=== PATIENT | male | born 1975 | race Caucasian/White ===

== ENCOUNTER → 2018-12-19 | Outpatient (CLI) | payer BC, OTHER ==
[~2018-12-19] MED LIST: ALBU90OI INH; CLIN300 PO; CYCL10 PO; HYDACE5 PO; NAPR500 PO
[2018-12-19 17:25] LABS: WBC Count, Synovial Fluid 7997 /mm3 (0-180)
[2018-12-19 17:45] LABS: RBC Count, Synovial Fluid 490 /mm3 (0-0)
[2018-12-19 17:46] LABS: Appearance, Synovial Fluid Cloudy (Clear); Color, Synovial Fluid Yellow (None-P Yel)
[2018-12-19 18:09] LABS: Glucose, Body Fluid 8 mg/dL
[2018-12-19 19:06] LABS: Body Fluid Crystals NEG (NEGATIVE)
[2018-12-19 19:11] LABS: Lymphs, Synovial Fluid 3 % (0-15); Monocytes/Macrophages, Synovia 15 % (0-65); Neutrophils, Synovial Fluid 82 % (0-24)
== END | disposition home or self-care (01) ==
LOC: LAB 17:00 → LAB SHORT 17:00
PROVIDERS: Physician Assistant Surgical
DX: R22.0 Localized swelling, mass and lump, head (principal)
CPT/HCPCS: 82945; 89051; 89060

== ENCOUNTER 2020-07-23 07:39 | Inpatient (IN) | payer BC ==
[~2020-07-23] VITALS: Ht 182.9 cm; Wt 131.4 kg
[2020-07-23] MEDS ORDERED: OMEP20ER PO (07:59)
[2020-07-23 08:37] LABS: BASOPHILS ABSOLUTE AUTO 0.05 K/mm3 (0.00-0.23); BASOPHILS PERCENT AUTO 0 % (0-2); EOSINOPHILS PERCENT AUTO 0 % (0-6); Hematocrit 52.6 % (37.0-53.0); Hemoglobin 18.1 g/dL (13.5-17.5); IMMATURE GRAN ABSOLUTE AUTO 0.13 K/mm3 (0.00-0.10); IMMATURE GRAN PERCENT AUTO 1 % (0-1); LYMPHOCYTES ABSOLUTE AUTO 1.94 K/mm3 (0.84-5.20); LYMPHOCYTES PERCENT AUTO 9 % (21-46); MONOCYTES ABSOLUTE AUTO 0.82 K/mm3 (0.16-1.47); MONOCYTES PERCENT AUTO 4 % (4-13); Mean Corpuscular HGB 30.2 pg (26.0-34.0); Mean Corpuscular HGB Conc 34.4 g/dL (31.5-36.5); Mean Corpuscular Volume 88 fL (80-100); Mean Platelet Volume 12.3 fL (9.1-12.4); NEUTROPHILS ABSOLUTE AUTO 19.76 K/mm3 (1.96-9.15); NEUTROPHILS PERCENT AUTO 87 % (41-73); Platelet Count 407 K/mm3 (150-400); RDW Coefficient Variation 12.7 % (11.7-14.2); RDW Standard Deviation 40.5 fL (35.1-46.3)
[2020-07-23 09:02] LABS: Albumin, Blood 4.6 g/dL (3.4-5.0); Bilirubin, Total 1.1 mg/dL (0.1-1.0); Calcium, Blood 10.2 mg/dL (8.5-10.1); Creatinine, Blood 1.6 mg/dL (0.60-1.20); Globulin, Blood 4.4 g/dL (2.2-4.0); Potassium, Blood 5.2 mmol/L (3.5-5.5)
[2020-07-23 09:23] LABS: Source, Urine Voided
[2020-07-23 09:34] LABS: Bilirubin, Urine Neg (Neg); Blood, Urine 2+ (Neg); Glucose Qualitative, Urine 4+ (Neg); Ketones, Urine 4+ (Neg); Leukocyte Esterase, Urine Neg (Neg); Nitrite, Urine Neg (Neg); Protein, Urine 2+ (Neg); Urobilinogen, Urine NORM (Normal)
[2020-07-23 09:48] LABS: Appearance, Urine Clear (Clear); Color, Urine Yellow (P-Yellow)
[2020-07-23 09:50] LABS: Bacteria Rare /hpf; Red Blood Cells, Urine 0-2 /hpf (0-2); Squamous Epithelial Cells Rare /hpf (Few); White Blood Cells, Urine 0-2 /hpf (0-5)
[2020-07-23 11:02] LABS: CHOL/HDL RATIO 7.9; Cholesterol 316 mg/dL (50-200); HDL Cholesterol 40 mg/dL (>39); LDL/HDL RATIO 5.4; Low Density Lipoprotein Chol 216 mg/dL (0-110); Triglycerides 302 mg/dL (30-160); Very Low Density Lipoprot Chol 60 mg/dL (6-32)
[2020-07-23 12:30] LABS: Calcium, Ionized (POC) 1.25 mmol/L (1.10-1.46); Chloride (POC) 103 mmol/L (98-108); Creatinine (POC) 1.2 mg/dL (0.8-1.3); Glucose (ISTAT POC) 652 mg/dL (70-99); Hemoglobin (POC) 16.7 g/dL (13.5-17.5); Potassium (POC) 6.1 mmol/L (3.5-5.5); Sodium (POC) 129 mmol/L (135-148); Total CO2 (POC) 10 mmol/L (21-32)
[2020-07-23 14:33] LABS: Glucose, Blood 589 mg/dL (70-99)
[2020-07-23 14:40] LABS: Anion Gap 22 mmol/L (6-16); Blood Urea Nitrogen 30 mg/dL (8-24); CO2, Blood 10 mmol/L (21-32); Chloride, Blood 100 mmol/L (98-108); Creatinine, Blood 1.11 mg/dL (0.60-1.20); Glomerular Filtration Rate >60 (60-); Glucose, Blood 568 mg/dL (70-99); Potassium, Blood 4.3 mmol/L (3.5-5.5); Sodium, Blood 132 mmol/L (136-145)
--- NOTE | 2020-07-23 15:48 | NUR ---
1228 PT WAS ADMITTED TO ICU-3 VIA STRETCHER. A/O. BP IS IS ELEVATED AND WILL INQUIRE TO DR WISHES WITH IVF REPLACEMENT. PT IS COOP AND PLEASANT BUT IS NERVIOUS RE CURRENT DX AND OUTCOMES. WILL MONITOR BP AND DELAY TX OF SAME FOR NOW DUE TO POSSIBLE ANXIETY ISSUES EFFECTING BP ISSUES. PT IN ROOM. WILL MONITOR BLOOD GLUCOSE AND TITRATE INSULIN. PT IS IN ST W/O HX OR C/O CHEST PAINS WITH LAST FEW DAYS OF TACHYCARDIA. IV SITES WNL.
--- NOTE | 2020-07-23 17:29 | NUR ---
PT HAS RESTED WELL THIS PM BUT BP HAS BEEN SL ELEVATED NOTED AND PRN APRESELINE GIVEN, WILL FOLLOW RESULTS. IVF REMAINS AT 150ML MAINTANCE AND INSULIN GTT AT 6.6 ML. PT IS COOP WITH NPO STATUS. HAS RETURNED INTO THE ROOM. PT CONT TO SET AT SIDE OF BED TO VOID. NO FURTHER N/V NOTED IN ICU.
--- NOTE | 2020-07-23 17:49 | NUR ---
PT BP REMAINS ELEVATED NOTED. PT ALSO IS C/O CONT MID-EPIGASTRIC PAIN THAT COMES AND GOES. CHANGED TO NS AT 150ML. INSULIN REMAINS AT 6.6 UNITS/ML AND CBG'S ARE DEC. SLOWLY DESIRED.
[2020-07-23 18:59] LABS: Anion Gap 17 mmol/L (6-16); Blood Urea Nitrogen 29 mg/dL (8-24); Bun/Creatinine Ratio 32.8 (12.0-20.0); CO2, Blood 11 mmol/L (21-32); Calcium, Blood 9.5 mg/dL (8.5-10.1); Chloride, Blood 109 mmol/L (98-108); Creatinine, Blood 0.88 mg/dL (0.60-1.20); Glomerular Filtration Rate >60 (60-); Glucose, Blood 380 mg/dL (70-99); Potassium, Blood 4.5 mmol/L (3.5-5.5); Sodium, Blood 137 mmol/L (136-145)
--- NOTE | 2020-07-23 19:30 | NUR ---
SHIFT ASSESSMENT REPORT RECEIVED FROM ALBARO RN PT ALERT X 4. CALM AND COOPERATIVE, RESTING IN BED. PT JUST RECENTLY MEDICATED c IV DILAUDID, CURRENTLY HAS NO COMPLAINTS. DENIES N/V. INSULIN GTT @7UNITS IN THE LAC. 150ML/HR NS INFUSING LH. WILL CONTINUE TO MONITOR CBG Q1HR. CALL LIGHT IN REACH, PT ABLE TO VOICE NEEDS.
[2020-07-23 22:36] LABS: Anion Gap 10 mmol/L (6-16); Blood Urea Nitrogen 26 mg/dL (8-24); CO2, Blood 18 mmol/L (21-32); Calcium, Blood 9.5 mg/dL (8.5-10.1); Chloride, Blood 110 mmol/L (98-108); Creatinine, Blood 0.93 mg/dL (0.60-1.20); Glomerular Filtration Rate >60 (60-); Glucose, Blood 337 mg/dL (70-99); Potassium, Blood 4.1 mmol/L (3.5-5.5); Sodium, Blood 138 mmol/L (136-145)
[2020-07-24 02:23] LABS: Anion Gap 12 mmol/L (6-16); Blood Urea Nitrogen 24 mg/dL (8-24); Bun/Creatinine Ratio 28.2 (12.0-20.0); CO2, Blood 18 mmol/L (21-32); Chloride, Blood 111 mmol/L (98-108); Creatinine, Blood 0.85 mg/dL (0.60-1.20); Glomerular Filtration Rate >60 (60-); Glucose, Blood 318 mg/dL (70-99); Sodium, Blood 141 mmol/L (136-145)
--- NOTE | 2020-07-24 05:48 | NUR ---
SHIFT SUMMARY PT CALM AND COOPERATIVE T/O THE NIGHT/ MORNING. NO VOMITING, ONE SHORT BOUT OF NAUSEA THAT WAS TREATED c 4MG ZOFRAN. HYPERTENSIVE IN THE AM, PRESCRIBED LABETOLOL ADMIN c IMPROVED BP. INSULIN GTT @8UNITS. NO OTHER COMPLAINTS AT THIS TIME. PT REQUESTING WATER AND SNACK. WILL CONTINUE TO MONITOR CBG Q1HR.
[2020-07-24 06:23] LABS: BASOPHILS ABSOLUTE AUTO 0.01 K/mm3 (0.00-0.23); BASOPHILS PERCENT AUTO 0 % (0-2); EOSINOPHILS ABSOLUTE AUTO 0.02 K/mm3 (0.00-0.68); EOSINOPHILS PERCENT AUTO 0 % (0-6); Hematocrit 42.5 % (37.0-53.0); IMMATURE GRAN ABSOLUTE AUTO 0.04 K/mm3 (0.00-0.10); IMMATURE GRAN PERCENT AUTO 0 % (0-1); LYMPHOCYTES ABSOLUTE AUTO 1.89 K/mm3 (0.84-5.20); LYMPHOCYTES PERCENT AUTO 13 % (21-46); MONOCYTES ABSOLUTE AUTO 1.19 K/mm3 (0.16-1.47); MONOCYTES PERCENT AUTO 8 % (4-13); Mean Corpuscular HGB 29.8 pg (26.0-34.0); Mean Corpuscular HGB Conc 35.3 g/dL (31.5-36.5); Mean Corpuscular Volume 85 fL (80-100); Mean Platelet Volume 11.1 fL (9.1-12.4); NEUTROPHILS ABSOLUTE AUTO 11.31 K/mm3 (1.96-9.15); NEUTROPHILS PERCENT AUTO 78 % (41-73); Platelet Count 239 K/mm3 (150-400); RDW Coefficient Variation 13.1 % (11.7-14.2); Red Blood Cell Count 5.03 M/mm3 (4.30-5.90); White Blood Cell Count 14.46 K/mm3 (4.00-11.30)
[2020-07-24 06:31] LABS: Magnesium, Blood 2.6 mg/dL (1.6-2.4)
[2020-07-24 06:34] LABS: Anion Gap 9 mmol/L (6-16); Blood Urea Nitrogen 21 mg/dL (8-24); Bun/Creatinine Ratio 25.7 (12.0-20.0); CO2, Blood 19 mmol/L (21-32); Chloride, Blood 114 mmol/L (98-108); Creatinine, Blood 0.82 mg/dL (0.60-1.20); Glomerular Filtration Rate >60 (60-); Glucose, Blood 249 mg/dL (70-99); Potassium, Blood 3.7 mmol/L (3.5-5.5); Sodium, Blood 142 mmol/L (136-145)
--- NOTE | 2020-07-24 08:24 | NUR ---
PT RESTING IN BED. DENIES N/V. ON INSULIN GTT AT 8 UNITS/HR. NOW CBG BELOW 225 THEREFORE D5 1/2NS WAS STARTED. REMAINS NPO. NO REQUESTS OR COMPLAINTS.
--- NOTE | 2020-07-24 13:00 | NUR ---
PT IS EATING LUNCH. TOLERATING WELL. WAS GIVEN LANTUS THEN TAKEN OFF INSULIN GTT AND D5 1/2NS 45 MINUTES LATER. AT BEDSIDE. NO SIGN OF DISTRESS.
--- NOTE | 2020-07-24 15:10 | NUR ---
PT ARRIVED FROM ICU AT 1455. PT IS AO4 W/ ON BEDSIDE. HE DENIES PAIN, N/V, N/T, CHEST PAIN AND SOB. 2 IV ON L HAND AND L AC, PATENT AND FLUSHED 10ML NS. PT IS AMBULATING INDEPNDNT W/ MINIMAL 1 PERSON ASSIST. HE IS ON ADA DIET. ACHS FOR CBG MONITORING. PT ALSO DENIES DIZZINESS BUT FEELS A LITTLE WEAK. PT STS LAST BM X2 DAYS AGO.
[2020-07-24 15:40] LABS: Anion Gap 13 mmol/L (6-16); Blood Urea Nitrogen 20 mg/dL (8-24); Bun/Creatinine Ratio 21.7 (12.0-20.0); CO2, Blood 17 mmol/L (21-32); Calcium, Blood 9.3 mg/dL (8.5-10.1); Chloride, Blood 108 mmol/L (98-108); Creatinine, Blood 0.92 mg/dL (0.60-1.20); Glomerular Filtration Rate >60 (60-); Glucose, Blood 369 mg/dL (70-99); Potassium, Blood 3.8 mmol/L (3.5-5.5); Sodium, Blood 138 mmol/L (136-145)
--- NOTE | 2020-07-24 18:14 | NUR ---
SHIFT SUMMARY PT ARRIVE FROM ICU AT 1445 W/ , ALERT AND ORIENTED. PT DENIES PAIN, NAUSEA, VOMITING, NUMBNESS, TINGLING, CHEST PAIN, AND SOB. PT'S CBG IS BEING MONITORED, TRENDING UP. CBG AT [phone] TO 399 TODAY. HE WAS ON LOW SS, HUMALOG TREATMENT ONLY. CALLED DR. SINGH TO CHANGED MEDICATION DOSAGE. 10 UNITS OF LANTUS AND HIGH SS OF HUMALOG WITH 15 UNITS ADMINSTERED AT 1745. ENC AND EDUCAT PATIENT ABOUT ADA DIET.
--- NOTE | 2020-07-24 21:29 | NUR ---
BLOOD SUGAR AT HS, PT'S BLOOD SUGAR WAS 400. HOSPITALIST LATHE PULLER JAZZ LESLIE WAS NOTIFIED, AND CURRENT ORDERED DOSE CONTINUED. NO CHANGES TO INSULIN ORDERS MADE AT THIS TIME DUE TO CHANGES BEING MADE DURING DAY SHIFT. WILL CONTINUE TO MONITOR.
[2020-07-25 05:44] LABS: BASOPHILS ABSOLUTE AUTO 0.04 K/mm3 (0.00-0.23); BASOPHILS PERCENT AUTO 0 % (0-2); EOSINOPHILS ABSOLUTE AUTO 0.05 K/mm3 (0.00-0.68); EOSINOPHILS PERCENT AUTO 0 % (0-6); Hematocrit 42.9 % (37.0-53.0); Hemoglobin 14.7 g/dL (13.5-17.5); IMMATURE GRAN ABSOLUTE AUTO 0.04 K/mm3 (0.00-0.10); IMMATURE GRAN PERCENT AUTO 0 % (0-1); LYMPHOCYTES PERCENT AUTO 17 % (21-46); MONOCYTES ABSOLUTE AUTO 1.19 K/mm3 (0.16-1.47); MONOCYTES PERCENT AUTO 9 % (4-13); Mean Corpuscular HGB 29.5 pg (26.0-34.0); Mean Corpuscular HGB Conc 34.3 g/dL (31.5-36.5); Mean Corpuscular Volume 86 fL (80-100); Mean Platelet Volume 11.4 fL (9.1-12.4); NEUTROPHILS ABSOLUTE AUTO 9.84 K/mm3 (1.96-9.15); NEUTROPHILS PERCENT AUTO 73 % (41-73); Platelet Count 216 K/mm3 (150-400); RDW Coefficient Variation 13.2 % (11.7-14.2); RDW Standard Deviation 40.8 fL (35.1-46.3); Red Blood Cell Count 4.98 M/mm3 (4.30-5.90); White Blood Cell Count 13.46 K/mm3 (4.00-11.30)
[2020-07-25 06:07] LABS: Alanine Aminotransfer (ALT/SGP 27 U/L (12-78); Albumin, Blood 3.5 g/dL (3.4-5.0); Alk Phos 81 U/L (50-136); Anion Gap 13 mmol/L (6-16); Aspartate Aminotrans (AST/SGOT 7 U/L (12-37); Bilirubin, Total 1.1 mg/dL (0.1-1.0); Blood Urea Nitrogen 21 mg/dL (8-24); Bun/Creatinine Ratio 26.2 (12.0-20.0); CO2, Blood 19 mmol/L (21-32); Calcium, Blood 9.3 mg/dL (8.5-10.1); Chloride, Blood 106 mmol/L (98-108); Glomerular Filtration Rate >60 (60-); Glucose, Blood 348 mg/dL (70-99); Magnesium, Blood 2.4 mg/dL (1.6-2.4); Phosphorus, Blood 2.6 mg/dL (2.5-4.9); Potassium, Blood 3.7 mmol/L (3.5-5.5); Sodium, Blood 138 mmol/L (136-145)
[2020-07-25 06:10] LABS: Globulin, Blood 3.5 g/dL (2.2-4.0)
--- NOTE | 2020-07-25 06:10 | NUR ---
SHIFT SUMMARY PT IS A 44 Y/O MALE, ADMITTED FOR DKA. HE IS A&O X 4, INDEPENDENT IN THE ROOM. AT HS, PT'S BLOOD SUGAR WAS ELEVATED AT 400 (SEE PREVIOUS NOTE). HE DID REPORT THIS AM THAT HE IS FEELING "BETTER THAN I HAVE IN THE LAST FOUR DAYS". NO COMPLAINTS OF PAIN, NAUSEA OR SOB. VITAL SIGNS STABLE. NO ACUTE CHANGES IN PT CONDITION NOTED. WILL CONTINUE TO MONITOR AND TREAT PER EMAR UNTIL HAND OFF TO DAY SHIFT RN.
--- NOTE | 2020-07-25 17:59 | NUR ---
SHIFT SUMMARY PT A&O X4. UP IND IN ROOM. INTO VISIT MOST OF THE DAY. NO C/O THIS SHIFT. PT BLOOD SUGARS IN 300'S TX PER RX. STARTED PT EDUCATION ABOUT DIABETIC MANAGEMENT: DIET, INSULIN, SLIDING SCALE, ETC. PT VERB UNDERSTANDING, ENCOURAGED PT TO CONTINUE TO PARTICIPATE WITH INSULIN TEACHING. NO ACUTE CHANGES. PLAN: POSSIBLE DC HOME TOMORROW.
[2020-07-26 05:39] LABS: BASOPHILS ABSOLUTE AUTO 0.05 K/mm3 (0.00-0.23); BASOPHILS PERCENT AUTO 1 % (0-2); EOSINOPHILS ABSOLUTE AUTO 0.07 K/mm3 (0.00-0.68); EOSINOPHILS PERCENT AUTO 1 % (0-6); Hematocrit 40.7 % (37.0-53.0); IMMATURE GRAN ABSOLUTE AUTO 0.03 K/mm3 (0.00-0.10); IMMATURE GRAN PERCENT AUTO 0 % (0-1); LYMPHOCYTES PERCENT AUTO 27 % (21-46); MONOCYTES ABSOLUTE AUTO 0.92 K/mm3 (0.16-1.47); MONOCYTES PERCENT AUTO 9 % (4-13); Mean Corpuscular HGB 29.5 pg (26.0-34.0); Mean Corpuscular HGB Conc 34.4 g/dL (31.5-36.5); Mean Corpuscular Volume 86 fL (80-100); Mean Platelet Volume 11.3 fL (9.1-12.4); NEUTROPHILS ABSOLUTE AUTO 6.86 K/mm3 (1.96-9.15); NEUTROPHILS PERCENT AUTO 63 % (41-73); Platelet Count 193 K/mm3 (150-400); RDW Coefficient Variation 12.6 % (11.7-14.2); RDW Standard Deviation 39.4 fL (35.1-46.3); Red Blood Cell Count 4.75 M/mm3 (4.30-5.90); White Blood Cell Count 10.83 K/mm3 (4.00-11.30)
--- NOTE | 2020-07-26 05:57 | NUR ---
SHIFT SUMMARY PT IS A 44 Y/O MALE, ADMITTED FOR DKA. HE IS A&O X 4, INDEPENDENT IN THE ROOM. NO COMPLAINTS OF PAIN, NAUSEA OR SOB. VITAL SIGNS STABLE. PT IS ON NS @ 100 ML/HR. BLOOD SUGARS REMAIN IN THE 300S THROUGHOUT THE DAY AND AT HS. COVERED PER EMAR. PT SLEPT WELL THROUGH THE NIGHT. NO ACUTE CHANGES IN PT CONDITION NOTED. WILL CONTINUE TO MONITOR AND TREAT PER EMAR UNTIL HAND OFF TO DAY SHIFT RN.
[2020-07-26 06:08] LABS: Albumin, Blood 3.1 g/dL (3.4-5.0); Anion Gap 11 mmol/L (6-16); Blood Urea Nitrogen 17 mg/dL (8-24); Bun/Creatinine Ratio 23.1 (12.0-20.0); CO2, Blood 22 mmol/L (21-32); Calcium, Blood 8.7 mg/dL (8.5-10.1); Chloride, Blood 103 mmol/L (98-108); Creatinine, Blood 0.74 mg/dL (0.60-1.20); Glomerular Filtration Rate >60 (60-); Glucose, Blood 308 mg/dL (70-99); Phosphorus, Blood 3.3 mg/dL (2.5-4.9); Potassium, Blood 3.2 mmol/L (3.5-5.5); Sodium, Blood 136 mmol/L (136-145)
--- NOTE | 2020-07-26 07:12 | NUR ---
ASSUMED CARE OF PT- BEDSIDE REPORT COMPLETED WITH NIGHT RN RODNEY. PER REPORT PT WAS ADMITTED TO ICU WITH DKA. PT WAS PRE-DIABETIC AND BECAME ILL AT HOME FOR A COUPLE OF DAYS. BG IS A LITTLE MORE MANAGED NOW IN THE 300'S. THE GOAL IS TO GET IT MORE MANAGED PRIOR TO DISCHARGE HOME. PER REPORT PT WAS ABLE TO DEMONSTRATE HIS OWN INSUILN ADMINISTRATION LAST NIGHT WITH STAFF EDUCATION. WILL CONTINUE TO TEACH NEEDED. PT ALERT ORIENTED AND INDEPENDENT IN THE ROOM.
[2020-07-26] MEDS ORDERED: BASAGLAR K100 UNIT/1 SC (11:40)
[2020-07-26] MEDS ORDERED: HUMALOG KW100 UNIT/1 SC (11:47)
[2020-07-26] MEDS ORDERED: Prinivil10 MG PO (11:48)
== END 2020-07-26 12:52 | disposition home or self-care (01) | DRG 637 ==
LOC: ER 07:39 → ICUE 10:33 → ICUW 10:33 → ICUE 12:14 → MEDS 07-24 14:43 → ENPENDDIS 07-26 10:59 → MEDS 07-26 12:52
PROVIDERS: Emergency Medicine; Family Medicine; Internal Medicine; Nurse Practitioner Acute Care; ADMIT Internal Medicine
DX: E11.10 Type 2 diabetes mellitus with ketoacidosis without coma (principal); K85.90 Acute pancreatitis without necrosis or infection, unspecified; R65.11 Systemic inflammatory response syndrome (SIRS) of non-infectious origin with acute organ dysfunction; N17.9 Acute kidney failure, unspecified; E87.1 Hypo-osmolality and hyponatremia; Z20.828 Contact with and (suspected) exposure to other viral communicable diseases; Z79.4 Long term (current) use of insulin; E87.6 Hypokalemia; E66.9 Obesity, unspecified; I10 Essential (primary) hypertension; K21.9 Gastro-esophageal reflux disease without esophagitis; Z87.891 Personal history of nicotine dependence; Z68.38 Body mass index [BMI] 38.0-38.9, adult
CPT/HCPCS: 36415; 76700; 80047; 80048; 80053; 80061; 80069; 81001; 82010; 82947; 83036; 83690; 83735; 84100; 85014; 85025; 96361; 96374; 99284-25; A9270; A9270-GY; C9113; J0360; J1170; J1650; J1815; J2405; J7030; J7042; J7120

== ENCOUNTER 2021-02-18 13:17 | Emergency (ER) | payer BC ==
[~2021-02-18] VITALS: Ht 182.9 cm; Wt 122.5 kg
[~2021-02-18 13:17] MED LIST changes: +BASAGLAR K100 UNIT/1 SC; +HUMALOG KW100 UNIT/1 SC; +OMEP20ER PO; +Prinivil10 MG PO
[2021-02-18] MEDS ORDERED: METF500 PO (13:43)
== END 2021-02-18 14:01 | disposition home or self-care (01) ==
LOC: ER 13:17
DX: S00.452A Superficial foreign body of left ear, initial encounter (principal); E11.9 Type 2 diabetes mellitus without complications; Z23 Encounter for immunization; Z79.84 Long term (current) use of oral hypoglycemic drugs; Z79.899 Other long term (current) drug therapy; W45.8XXA Other foreign body or object entering through skin, initial encounter
CPT/HCPCS: 90471; 90714; 99282-25

== ENCOUNTER 2022-03-02 11:38 | Emergency (ER) | payer OTHER, BC ==
[~2022-03-02] VITALS: Ht 182.9 cm; Wt 142.9 kg
[~2022-03-02 11:38] MED LIST changes: +METF500 PO
[2022-03-02] MEDS ORDERED: XYOSTED50 MG/0.1 SQ (12:38)
[2022-03-02] MEDS ORDERED: AMOCLA875 PO (13:53)
[2022-03-02] MEDS ORDERED: Norco 5-325 Ta1 EACH PO (14:33)
== END 2022-03-02 14:51 | disposition home or self-care (01) ==
LOC: ER 11:38
DX: S92.532B Displaced fracture of distal phalanx of left lesser toe(s), initial encounter for open fracture (principal); E11.9 Type 2 diabetes mellitus without complications; W23.0XXA Caught, crushed, jammed, or pinched between moving objects, initial encounter; Y92.9 Unspecified place or not applicable; Z87.891 Personal history of nicotine dependence; Z79.899 Other long term (current) drug therapy
CPT/HCPCS: 73630

== ENCOUNTER 2022-03-10 12:47 | Emergency (ER) | payer OTHER, BC ==
[~2022-03-10] VITALS: Ht 182.9 cm; Wt 142.4 kg
[~2022-03-10 12:47] MED LIST changes: +AMOCLA875 PO; +Norco 5-325 Ta1 EACH PO; +XYOSTED50 MG/0.1 SQ
[2022-03-10 14:30] LABS: Calcium, Ionized (POC) 1.22 mmol/L (1.10-1.46); Chloride (POC) 102 mmol/L (98-108); Creatinine (POC) 0.8 mg/dL (0.8-1.3); Glucose (ISTAT POC) 143 mg/dL (70-99); Hemoglobin (POC) 14.3 g/dL (13.5-17.5); Potassium (POC) 3.9 mmol/L (3.5-5.5); Sodium (POC) 138 mmol/L (135-148); Total CO2 (POC) 26 mmol/L (21-32)
== END 2022-03-10 15:11 | disposition home or self-care (01) ==
LOC: ER 12:47
PROVIDERS: Emergency Medicine
DX: M19.072 Primary osteoarthritis, left ankle and foot (principal); S92.502D Displaced unspecified fracture of left lesser toe(s), subsequent encounter for fracture with routine healing; W23.0XXD Caught, crushed, jammed, or pinched between moving objects, subsequent encounter; E11.65 Type 2 diabetes mellitus with hyperglycemia; K21.9 Gastro-esophageal reflux disease without esophagitis; Z87.891 Personal history of nicotine dependence
CPT/HCPCS: 80047; 85014; 93971

== ENCOUNTER 2022-03-13 10:50 | Inpatient (IN) | payer OTHER, BC ==
[~2022-03-13] VITALS: Ht 182.9 cm; Wt 134.4 kg
[~2022-03-13 10:50] MED LIST changes: -XYOSTED50 MG/0.1 SQ; +XYOSTED50 MG/0.1 TOP
[2022-03-13 11:33] LABS: BASOPHILS ABSOLUTE AUTO 0.04 K/mm3 (0.00-0.23); BASOPHILS PERCENT AUTO 0 % (0-2); EOSINOPHILS ABSOLUTE AUTO 0.09 K/mm3 (0.00-0.68); EOSINOPHILS PERCENT AUTO 1 % (0-6); Hematocrit 42.2 % (37.0-53.0); Hemoglobin 14.2 g/dL (13.5-17.5); IMMATURE GRAN ABSOLUTE AUTO 0.04 K/mm3 (0.00-0.10); IMMATURE GRAN PERCENT AUTO 0 % (0-1); LYMPHOCYTES PERCENT AUTO 15 % (21-46); MONOCYTES ABSOLUTE AUTO 0.99 K/mm3 (0.16-1.47); MONOCYTES PERCENT AUTO 8 % (4-13); Mean Corpuscular HGB 29.3 pg (26.0-34.0); Mean Corpuscular HGB Conc 33.6 g/dL (31.5-36.5); Mean Corpuscular Volume 87 fL (80-100); Mean Platelet Volume 10.3 fL (9.1-12.4); NEUTROPHILS ABSOLUTE AUTO 9.61 K/mm3 (1.96-9.15); NEUTROPHILS PERCENT AUTO 76 % (41-73); Platelet Count 258 K/mm3 (150-400); RDW Coefficient Variation 12.6 % (11.7-14.2); RDW Standard Deviation 40.6 fL (35.1-46.3); Red Blood Cell Count 4.84 M/mm3 (4.30-5.90); White Blood Cell Count 12.67 K/mm3 (4.00-11.30)
[2022-03-13 11:58] LABS: Alanine Aminotransfer (ALT/SGP 27 U/L (12-78); Albumin, Blood 3.4 g/dL (3.4-5.0); Albumin/Globulin Ratio 0.7 (0.8-1.8); Alk Phos 63 U/L (50-136); Anion Gap 7 mmol/L (6-16); Aspartate Aminotrans (AST/SGOT 10 U/L (12-37); Bilirubin, Total 0.9 mg/dL (0.1-1.0); Blood Urea Nitrogen 10 mg/dL (8-24); Bun/Creatinine Ratio 12.8 (12.0-20.0); CO2, Blood 25 mmol/L (21-32); Calcium, Blood 9.2 mg/dL (8.5-10.1); Chloride, Blood 104 mmol/L (98-108); Creatinine, Blood 0.78 mg/dL (0.60-1.20); Globulin, Blood 4.7 g/dL (2.2-4.0); Glomerular Filtration Rate >60 (60-); Glucose, Blood 203 mg/dL (70-99); Potassium, Blood 4.1 mmol/L (3.5-5.5); Sodium, Blood 136 mmol/L (136-145); Total Protein, Blood 8.1 g/dL (6.4-8.2)
[2022-03-13 20:14] LABS: Body Fluid Crystals POS (NEGATIVE)
[2022-03-13 20:42] LABS: WBC Count, Synovial Fluid 1116 /mm3 (0-180)
[2022-03-13 21:01] LABS: Protein, Body Fluid 5.3 g/dL
[2022-03-13 21:02] LABS: Glucose, Body Fluid 143 mg/dL
[2022-03-13 21:06] LABS: Lymphs, Synovial Fluid 1 % (0-15); Monocytes/Macrophages, Synovia 7 % (0-65); Neutrophils, Synovial Fluid 92 % (0-24)
[2022-03-13 21:25] LABS: Appearance, Synovial Fluid Cloudy (Clear); Color, Synovial Fluid Yellow (None-P Yel); RBC Count, Synovial Fluid 560 /mm3 (0-0)
[2022-03-13] MEDS ORDERED: VOGELXO75 GM TOP (21:48)
--- NOTE | 2022-03-14 04:16 | NUR ---
SHIFT SUMMARY: A/OX4, STANDBY ASSIST STAND AND PIVOT- PATIENT CONTINUES UNABLE TO BEAR WEIGHT ON LEFT LEG- HOPPED FROM STRETCHER TO BED WITH INCREASED DISCOMFORT. PT REPORTS PAIN HAS IMPROVED SOME, MANAGING WITH PRN MEDICATIONS PER EMAR. PATIENT CONTINENT USING URINAL, CALLS APPROPRIATELY, BED IN LOW POSITION, CALL CRUZ IN REACH.
[2022-03-14 05:07] LABS: Hematocrit 38.9 % (37.0-53.0); Hemoglobin 13.2 g/dL (13.5-17.5); Mean Corpuscular HGB 29.7 pg (26.0-34.0); Mean Corpuscular HGB Conc 33.9 g/dL (31.5-36.5); Mean Corpuscular Volume 87 fL (80-100); Mean Platelet Volume 10.6 fL (9.1-12.4); Platelet Count 232 K/mm3 (150-400); RDW Coefficient Variation 12.5 % (11.7-14.2); RDW Standard Deviation 40.4 fL (35.1-46.3); Red Blood Cell Count 4.45 M/mm3 (4.30-5.90); White Blood Cell Count 10.01 K/mm3 (4.00-11.30)
[2022-03-14 05:45] LABS: Anion Gap 8 mmol/L (6-16); Blood Urea Nitrogen 11 mg/dL (8-24); Bun/Creatinine Ratio 11.7 (12.0-20.0); CO2, Blood 26 mmol/L (21-32); Calcium, Blood 8.8 mg/dL (8.5-10.1); Chloride, Blood 103 mmol/L (98-108); Creatinine, Blood 0.94 mg/dL (0.60-1.20); Glomerular Filtration Rate >60 (60-); Glucose, Blood 172 mg/dL (70-99); Potassium, Blood 3.6 mmol/L (3.5-5.5); Sodium, Blood 137 mmol/L (136-145)
--- NOTE | 2022-03-14 11:16 | NUR ---
LAB NOTIFIED THIS RN OF BLOOD CX REPORT POSITIVE FOR GRAM+ COCCI IN CLUSTERS. DR. NICHOLSON AND DR. GUTIERREZ NOTIFIED OF REPORT. NO NEW ORDERS AT THIS TIME.
--- NOTE | 2022-03-14 17:53 | NUR ---
SHIFT SUMMARY: PT IS A/O X4. HE IS ABLE TO STAND WITH ASSISTANCE AND AMBULATE TO THE BATHROOM WITH A WALKER. PT CONTINUES TO HAVE PAIN IN HIS LEFT FOOT, BUT NOTES THAT IT IS MANAGEABLE AT REST. PT WAS MEDICATED ONCE WITH TORADOL DURING MY SHIFT. ABX ADMINISTERED PER EMAR. PT OTHERWISE RESTING COMFORTABLY IN ROOM. CALLS APPROPRIATELY. BED IN LOW POSITION. WILL REPORT TO NIGHT NURSE.
[2022-03-14 19:39] LABS: Vancomycin, Trough 17.6 ug/mL (5.0-10.0)
--- NOTE | 2022-03-15 06:37 | NUR ---
SHIFT SUMMARY: A/OX4, STAND BY ASSIST WITH AMBULATION TO THE WALKER. PATIENT NOW ABLE TO TOLERATE SOME WEIGHT ON LEFT LEG, TOLERATING WELL. PATIENT WAS ABLE TO TAKE A SHOWER LAST NIGHT. SWELLING, REDNESS AND PAIN HAS IMPROVED. BED IN LOW POSITION, CALL CRUZ IN REACH, PATIENT CALLING APPROPRIATELY.
--- NOTE | 2022-03-15 18:39 | NUR ---
SHIFT SUMMARY: PT A/O X 4 STANDBY ASSIST, PLEASANT AND COOPERATIVE WITH CARE. PT REDNESS TO L LEG HAS RESOLVED. PT REPORTS LESS PAIN AND IS MANAGED WITH ALTERNATING TYLENOL AND ADVIL AT THIS TIME. PT REQUESTED HE RESTART TAKING HIS TESTOSTERONE GEL SUPPLEMENT TOMORROW HE REPORTS HE IS STARTING TO FEEL "EMOTIONAL" OVER THINGS HE SHOULD NOT BE EMOTIONAL ABOUT. BROUGHT IN TESTOSTERONE AND IT WAS TAKEN TO PHARMACY FOR VERIFICATION AND IS LOCKED IN DRAWER. NO OTHER CONCERNS AROSE TODAY.
[2022-03-15 20:32] LABS: Vancomycin, Trough 22.4 ug/mL (5.0-10.0)
--- NOTE | 2022-03-16 04:26 | NUR ---
SHIFT SUMMARY: A/OX4 PATIENT INDEPENDENT WITH ADL'S AND REPOSITIONING IN BED. STAND BY ASSIST WITH WALKER WHEN AMBULATING. SWELLING AND REDNESS IN LEFT LEG HAS DECREASED AND PAIN IS NOW MANAGED WITH PRN ACETAMINOPHEN AND MOTRIN. BED IN LOW POSITION, CALL CRUZ IN REACH AND BELONGINGS AT BEDSIDE.
[2022-03-16] MEDS ORDERED: IBUP400 PO (11:42)
[2022-03-16] MEDS ORDERED: Acetaminophen650 M1 PO (11:42)
[2022-03-16] MEDS ORDERED: ALLO100 PO (11:43)
[2022-03-16] MEDS ORDERED: VISBIOME 112.51 EACH PO (11:43)
[2022-03-16] MEDS ORDERED: AMOCLA875 PO (11:43)
--- NOTE | 2022-03-16 17:37 | NUR ---
DISCHARGE PACKET REVIEWED WITH PATIENT. PATIENT'S WALKER WAS DELIVERED. HIS IV WAS REMOVED AND WAS INTACT. PT ABLE TO STAND AND PIVOT TO WHEELCHAIR. HE WAS TAKEN OUT TO HIS 'S CAR.
== END 2022-03-16 16:46 | disposition home or self-care (01) | DRG 554 ==
LOC: ER 10:50 → MEDS 21:27
PROVIDERS: Emergency Medicine; Physician Assistant; ADMIT Internal Medicine
PROC: 0S9D3ZZ Drainage of Left Knee Joint, Percutaneous Approach (ICD-10-PCS; principal; 2022-03-13)
DX: M1A.0620 Idiopathic chronic gout, left knee, without tophus (tophi) (principal); L03.116 Cellulitis of left lower limb; Z68.41 Body mass index [BMI] 40.0-44.9, adult; R78.81 Bacteremia; S97.102A Crushing injury of unspecified left toe(s), initial encounter; S92.532A Displaced fracture of distal phalanx of left lesser toe(s), initial encounter for closed fracture; I10 Essential (primary) hypertension; E11.9 Type 2 diabetes mellitus without complications; K21.9 Gastro-esophageal reflux disease without esophagitis; Z85.47 Personal history of malignant neoplasm of testis; E66.01 Morbid (severe) obesity due to excess calories; B95.7 Other staphylococcus as the cause of diseases classified elsewhere; Z98.890 Other specified postprocedural states; W23.0XXA Caught, crushed, jammed, or pinched between moving objects, initial encounter
CPT/HCPCS: 20610; 36415; 73701; 80048; 80053; 80202; 82945; 82947; 83605; 84145; 84157; 84550; 85025; 85027; 86140; 87040; 87070; 87075; 87077; 87186; 87205; 89051; 89060; 93306; 93971; 96365; 96375; 99284-25; A9270; J1650; J1885; J2543; J3010; J3370; J7030; J7040; J7060; Q9967

== ENCOUNTER 2022-04-16 13:58 | Inpatient (IN) | payer OTHER, BC ==
[~2022-04-16] VITALS: Ht 182.9 cm; Wt 142.4 kg
[~2022-04-16 13:58] MED LIST changes: +ALLO100 PO; +Acetaminophen650 M1 PO; +IBUP400 PO; +VISBIOME 112.51 EACH PO; +VOGELXO75 GM TOP
[2022-04-16 17:31] LABS: BASOPHILS ABSOLUTE AUTO 0.04 K/mm3 (0.00-0.23); BASOPHILS PERCENT AUTO 0 % (0-2); EOSINOPHILS ABSOLUTE AUTO 0.08 K/mm3 (0.00-0.68); EOSINOPHILS PERCENT AUTO 1 % (0-6); Hematocrit 40.1 % (37.0-53.0); Hemoglobin 13.4 g/dL (13.5-17.5); IMMATURE GRAN ABSOLUTE AUTO 0.03 K/mm3 (0.00-0.10); IMMATURE GRAN PERCENT AUTO 0 % (0-1); LYMPHOCYTES PERCENT AUTO 9 % (21-46); MONOCYTES ABSOLUTE AUTO 1.03 K/mm3 (0.16-1.47); MONOCYTES PERCENT AUTO 9 % (4-13); Mean Corpuscular HGB 28.8 pg (26.0-34.0); Mean Corpuscular HGB Conc 33.4 g/dL (31.5-36.5); Mean Corpuscular Volume 86 fL (80-100); NEUTROPHILS ABSOLUTE AUTO 8.92 K/mm3 (1.96-9.15); NEUTROPHILS PERCENT AUTO 80 % (41-73); RDW Coefficient Variation 12.8 % (11.7-14.2); RDW Standard Deviation 39.8 fL (35.1-46.3); Red Blood Cell Count 4.66 M/mm3 (4.30-5.90)
[2022-04-16 17:36] LABS: Albumin, Blood 3.3 g/dL (3.4-5.0); Albumin/Globulin Ratio 0.7 (0.8-1.8); Bilirubin, Total 1.5 mg/dL (0.1-1.0); Bun/Creatinine Ratio 16.1 (12.0-20.0); Calcium, Blood 9.7 mg/dL (8.5-10.1); Creatinine, Blood 0.99 mg/dL (0.60-1.20); Globulin, Blood 4.9 g/dL (2.2-4.0); Potassium, Blood 4.2 mmol/L (3.5-5.5); Total Protein, Blood 8.2 g/dL (6.4-8.2)
[2022-04-16 17:52] LABS: Mean Platelet Volume 10.9 fL (9.1-12.4); Platelet Count 202 K/mm3 (150-400)
[2022-04-16 19:20] LABS: Glucose, Body Fluid 26 mg/dL
[2022-04-16 19:20] LABS: Glucose, Body Fluid 33 mg/dL
[2022-04-16 19:29] LABS: Body Fluid Crystals POS (NEGATIVE)
[2022-04-16 19:30] LABS: Body Fluid Crystals POS (NEGATIVE)
[2022-04-16 19:45] LABS: BODY FLUID RBC 0.003 M/mm3 (0-0); RBC Count, Synovial Fluid 3000 /mm3 (0-0)
[2022-04-16 20:00] LABS: BODY FLUID RBC 0.011 M/mm3 (0-0); RBC Count, Synovial Fluid 11000 /mm3 (0-0)
[2022-04-16 20:19] LABS: WBC Count, Synovial Fluid 113620 /mm3 (0-180)
[2022-04-16 20:20] LABS: WBC Count, Synovial Fluid 78260 /mm3 (0-180)
[2022-04-16 20:21] LABS: Lymphs, Synovial Fluid 1 % (0-15); Monocytes/Macrophages, Synovia 4 % (0-65); Neutrophils, Synovial Fluid 95 % (0-24)
[2022-04-16 20:23] LABS: Lymphs, Synovial Fluid 1 % (0-15); Monocytes/Macrophages, Synovia 2 % (0-65); Neutrophils, Synovial Fluid 97 % (0-24)
[2022-04-16 20:24] LABS: Appearance, Synovial Fluid Cloudy (Clear); Color, Synovial Fluid Dark Yellow (None-P Yel)
[2022-04-16 20:24] LABS: Appearance, Synovial Fluid Cloudy (Clear); Color, Synovial Fluid Pale Yellow (None-P Yel)
--- NOTE | 2022-04-16 23:10 | NUR ---
PT ARRIVED TO MEDICAL FLOOR VIA ER GURNEY DRIVEN BY BILLET BED OPERATOR. PT AMBULATED WITH STAND BY ASSISTANCE FROM TWO STAFF MEMBERS TO MEDICAL BED. ORIENTED TO ROOM, INSTRUCTED TO CALL FOR ASSISTANCE FROM STAFF FOR BEDPAN. URINAL AT BEDSIDE. ROOM AIR.
--- NOTE | 2022-04-17 02:00 | NUR ---
PLACED PHONE CALL TO DR. MATUTE, PT STATES CURRENT PAIN MEDICATION IS NOT ADEQUATELY CONTROLLING PAIN, HE IS UNABLE TO SLEEP. RATING PAIN 9-10/10, IN HIS LEGS/HEAD/"WHOLE BODY". DR. MATUTE WITH ORDERS FOR FENTANYL 25 - 50 MCG'S IV Q 4 HRS, PRN PAIN. RN UPDATED ORDERS. AFTER ADMINISTERING 25 MCG'S OF FENTANYL, PT WAS ABLE TO SLEEP.
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
[2022-04-17 05:24] LABS: BASOPHILS ABSOLUTE AUTO 0.03 K/mm3 (0.00-0.23); BASOPHILS PERCENT AUTO 0 % (0-2); EOSINOPHILS ABSOLUTE AUTO 0.12 K/mm3 (0.00-0.68); EOSINOPHILS PERCENT AUTO 2 % (0-6); Hematocrit 35.2 % (37.0-53.0); Hemoglobin 11.6 g/dL (13.5-17.5); IMMATURE GRAN ABSOLUTE AUTO 0.01 K/mm3 (0.00-0.10); IMMATURE GRAN PERCENT AUTO 0 % (0-1); LYMPHOCYTES ABSOLUTE AUTO 1.61 K/mm3 (0.84-5.20); LYMPHOCYTES PERCENT AUTO 22 % (21-46); MONOCYTES ABSOLUTE AUTO 0.71 K/mm3 (0.16-1.47); MONOCYTES PERCENT AUTO 10 % (4-13); Mean Corpuscular HGB 28.6 pg (26.0-34.0); Mean Corpuscular Volume 87 fL (80-100); Mean Platelet Volume 10.2 fL (9.1-12.4); NEUTROPHILS ABSOLUTE AUTO 5.02 K/mm3 (1.96-9.15); NEUTROPHILS PERCENT AUTO 67 % (41-73); Platelet Count 207 K/mm3 (150-400); RDW Coefficient Variation 12.8 % (11.7-14.2); RDW Standard Deviation 40.6 fL (35.1-46.3); Red Blood Cell Count 4.06 M/mm3 (4.30-5.90)
[2022-04-17 05:50] LABS: Albumin, Blood 2.9 g/dL (3.4-5.0); Albumin/Globulin Ratio 0.7 (0.8-1.8); Bilirubin, Total 0.9 mg/dL (0.1-1.0); Bun/Creatinine Ratio 16.6 (12.0-20.0); Calcium, Blood 9.4 mg/dL (8.5-10.1); Creatinine, Blood 0.78 mg/dL (0.60-1.20); Globulin, Blood 4.2 g/dL (2.2-4.0); Potassium, Blood 3.6 mmol/L (3.5-5.5); Total Protein, Blood 7.1 g/dL (6.4-8.2)
[2022-04-17 09:58] LABS: SARS-Cov-2 (COVID-19) PCR, MMC NEGATIVE (NEGATIVE)
--- NOTE | 2022-04-17 12:00 | NUR ---
PT EASILY ROUSABLE POST PROCEDURE, ORIENTED AND ANSWERING QUESTIONS APPROPRIATELY; DENIES PAIN POST PROCEDURE. MONITOR SR 90'S, B/P 119/80, AFEBRILE, SPO2 99% ON 10 L MASK-TRANSITIONED TO RA.
--- NOTE | 2022-04-17 12:15 | NUR ---
PT REMAINS EASILY ROUSABLE, SPO2 93-95% RA.
--- NOTE | 2022-04-17 12:29 | NUR ---
REPORT GIVEN TO JANET STEVENS; ALL QUESTIONS ANSWERED.
--- NOTE | 2022-04-17 15:03 | NUR ---
Surgical site prepped with 2% Chlorhexidine cloth wipe. History, Chart, Medications and Allergies reviewed before start of procedure.Lungs clear T/O to Auscultation. Patient confirms NPO status and agrees with scheduled surgery. Pre-Op teaching done. Pt verbalizes understanding.
--- NOTE | 2022-04-17 16:05 | NUR ---
04/17/22 1605 Keshawn Kevin 1% LIDOCAINE WITH EPINEPHRINE 1:100,000 INJECTED 10CC EACH KNEE AT 1553 BY TN.NSS. 1MG EPINEPHRINE PER 3,000CC LR IRRIGATION FLUID BAGS X3
--- NOTE | 2022-04-17 18:37 | NUR ---
SHIFT SUMMARY: PATIENT RETURNED FROM PACU AT ~1810 VIA HIS BED. A&O X 4, STATES PAIN IS WELL CONTROLLED AT THIS TIME. BOAZ WRAPS IN PLACE ON BLE; TOES ARE WARM, SENSATION AND MOVEMENT INTACT, PEDAL PULSES PALPABLE BILATERALLY. DIET ADVANCED AND DINNER TRAY DELIVERED. DENIES NAUSEA. TRAPEZE PLACED ON BED. GIVEN INCENTIVE SPIROMETER AND INSTRUCTED ON ITS USE; PATIENT GAVE ADEQUATE RETURN DEMONSTRATION. NO EVENTS ON TELEMETRY, SR 80'S. FAMILY AT BEDSIDE.
--- NOTE | 2022-04-18 04:26 | NUR ---
SHIFT SUMMARY PATIENT HAD NO ACUTE CHANGES. AXOX 4 AND FAMILY PRESENT AT BEDSIDE DURING SHIFT CHANGE. WEIGHT BEARING TOLERATED FOR AMBULATION. PIV REMAINS INTACT. IV VANCO INFUSED. ON TELEMETRY NSR 88. REPORTED KNEE PAIN AND IBUPROFEN 400 MG GIVEN PER EMAR. DENIES SOB AND N/V. VSS/AFEBRILE. BOAZ WRAPS IN PLACE BLE. COOPERATIVE WITH CARE. CALL LIGHT IN REACH. BED IN LOWEST POSITION. WILL CONTINUE TO MONITOR UNTIL DAY SHIFT NURSE ASSUMES CARE.
[2022-04-18 05:35] LABS: BASOPHILS ABSOLUTE AUTO 0.01 K/mm3 (0.00-0.23); BASOPHILS PERCENT AUTO 0 % (0-2); EOSINOPHILS PERCENT AUTO 0 % (0-6); Hematocrit 34.2 % (37.0-53.0); Hemoglobin 11.3 g/dL (13.5-17.5); IMMATURE GRAN ABSOLUTE AUTO 0.03 K/mm3 (0.00-0.10); IMMATURE GRAN PERCENT AUTO 0 % (0-1); LYMPHOCYTES ABSOLUTE AUTO 0.86 K/mm3 (0.84-5.20); LYMPHOCYTES PERCENT AUTO 10 % (21-46); MONOCYTES ABSOLUTE AUTO 0.59 K/mm3 (0.16-1.47); MONOCYTES PERCENT AUTO 7 % (4-13); Mean Corpuscular HGB 28.7 pg (26.0-34.0); Mean Corpuscular Volume 87 fL (80-100); Mean Platelet Volume 10.3 fL (9.1-12.4); NEUTROPHILS ABSOLUTE AUTO 7.53 K/mm3 (1.96-9.15); NEUTROPHILS PERCENT AUTO 84 % (41-73); Platelet Count 258 K/mm3 (150-400); RDW Coefficient Variation 12.5 % (11.7-14.2); Red Blood Cell Count 3.94 M/mm3 (4.30-5.90); White Blood Cell Count 9.02 K/mm3 (4.00-11.30)
[2022-04-18 06:11] LABS: Albumin, Blood 2.6 g/dL (3.4-5.0); Albumin/Globulin Ratio 0.6 (0.8-1.8); Bilirubin, Total 0.5 mg/dL (0.1-1.0); Bun/Creatinine Ratio 21.1 (12.0-20.0); Calcium, Blood 9.2 mg/dL (8.5-10.1); Creatinine, Blood 0.8 mg/dL (0.60-1.20); Globulin, Blood 4.5 g/dL (2.2-4.0); Potassium, Blood 4.3 mmol/L (3.5-5.5); Total Protein, Blood 7.1 g/dL (6.4-8.2)
--- NOTE | 2022-04-18 16:32 | NUR ---
SHIFT SUMMARY PT IS A&O, PLEASANT AND CO-OP. USING URINAL AT BS AND UP TO BTHRM WITH 1P SBA USING FWW. PT HAD I&D ON BL KNEES YESTERDAY; TOLERATED WELL. BLE'S STILL WRAPPED WITH BOAZ WRAPS FROM ANKLES TO THIGHS. PT TO LEAVE WRAPS ON LEGS FOR AT LEAST 24HRS AND MAY REMOVE AT D/C TOMORROW. PT IS ST ON TELE. IV TO LH LEAKING WHEN BEING FLUSHED BEFORE STARTING VANCO. PG PLACED TO EMERALD BY CHILD CARE TEAM LEAD, [place]. FAMILY TO THIS AM AND AGAIN THIS AFTERNOON. PT WAITING FOR BCX'S TO RETURN TOMORROW, BEFORE GETTING TO GO HOME. DR RAMOS AND DR LA BOTH IN TO SEE PT AND DISCUSS PLAN OF CARE. SURGEON ALSO TO THIS AM TO K ON PT. NO NEW ORDERS. PT UP TO BTHRM FOR BM, REPORTING CONSTIPATION; DR RAMOS NOTIFIED. MIRALAX ORDERED AND GIVEN. PT DENIED FURTHER NEEDS AT THIS TIME. CALL LT IN REACH.
--- NOTE | 2022-04-19 04:26 | NUR ---
SHIFT SUMMARY PATIENT HAD NO ACUTE CHANGES OBSERVED. AXOX 4 AND SBA WITH FWW TO BR. BLE WRAPPED WITH BOAZ WRAP FROM ANKLE TO THIGH. REPORTED BLE PAIN AND ADVIL 400 MG GIVEN PER EMAR. POWERGLIDE EMERALD INTACT. IV VANCO GIVEN PER EMAR. ON TELEMETRY NSR 87. VSS/AFEBRILE. DENIES SOB AND N/V. COOPERATIVE WITH CARE. CALL LIGHT IN REACH. BED IN LOWEST POSITION. WILL CONTINUE TO MONITOR UNTIL DAY SHIFT NURSE ASSUMES CARE.
[2022-04-19 05:39] LABS: Hematocrit 31.8 % (37.0-53.0); Hemoglobin 10.5 g/dL (13.5-17.5); Mean Corpuscular HGB 28.9 pg (26.0-34.0); Mean Corpuscular Volume 88 fL (80-100); Platelet Count 238 K/mm3 (150-400); RDW Coefficient Variation 13.1 % (11.7-14.2); RDW Standard Deviation 42.1 fL (35.1-46.3); Red Blood Cell Count 3.63 M/mm3 (4.30-5.90)
[2022-04-19 05:55] LABS: Bun/Creatinine Ratio 25.3 (12.0-20.0); Calcium, Blood 9.3 mg/dL (8.5-10.1); Creatinine, Blood 0.79 mg/dL (0.60-1.20); Potassium, Blood 3.7 mmol/L (3.5-5.5)
--- NOTE | 2022-04-19 14:49 | NUR ---
SHIFT SUMMARY- PT VSS. PT COMPLIANT WITH CARE GIVEN. AT BEDSIDE. PT PLEASANTLY AWAITING DISCHARGE HOME TODAY. BED IN LOWEST POSITION, SIDE RAILS UP X3, AND CALL IGHT WITHIN REACH.
--- NOTE | 2022-04-19 14:51 | NUR ---
PT EDUCATED REGARDING DISCHARGE PAPERWORK SENT HOME. PT WITH ALL BELONGINGS IN HAND EXITING ROOM. PT TRANSPORTED VIA WHEELCHAIR TO [facility]. TRANSPORTING PATIENT TO HOME.
== END 2022-04-19 14:30 | disposition home or self-care (01) | DRG 872 ==
LOC: ER 13:58 → MEDS 22:05 → ER 22:50 → MEDS 23:23
PROVIDERS: Family Medicine; Internal Medicine Interventional Cardiology; Orthopaedic Surgery; Student in an Organized Health Care Education/Training Program; ADMIT Internal Medicine
PROC: 0S9C3ZZ Drainage of Right Knee Joint, Percutaneous Approach (ICD-10-PCS; 2022-04-17)
PROC: 3E03329 Introduction of Other Anti-infective into Peripheral Vein, Percutaneous Approach (ICD-10-PCS; 2022-04-17)
PROC: 0S9D3ZZ Drainage of Left Knee Joint, Percutaneous Approach (ICD-10-PCS; principal; 2022-04-17 15:00)
DX: A41.9 Sepsis, unspecified organism (principal); M00.9 Pyogenic arthritis, unspecified; Z68.41 Body mass index [BMI] 40.0-44.9, adult; Z20.822 Contact with and (suspected) exposure to COVID-19; M25.462 Effusion, left knee; M25.461 Effusion, right knee; E66.01 Morbid (severe) obesity due to excess calories; M10.9 Gout, unspecified; E11.9 Type 2 diabetes mellitus without complications; I10 Essential (primary) hypertension; K21.9 Gastro-esophageal reflux disease without esophagitis; Z85.47 Personal history of malignant neoplasm of testis; Z90.79 Acquired absence of other genital organ(s); Z79.899 Other long term (current) drug therapy; Z98.890 Other specified postprocedural states; Z87.891 Personal history of nicotine dependence
CPT/HCPCS: 20610; 36415; 73560-LT; 73560-RT; 80048; 80053; 80202; 82945; 82947; 83605; 85025; 85027; 86140; 87040; 87070; 87075; 87205; 89051; 89060; 93312; 93325; 96361; 96374; 97110; 97161; 99152; 99284-25; A9270; J0171; J0696; J1100; J1170; J1650; J1885; J2250; J2405; J2704; J3010; J3370; J7030; J7040; J7060; J7120; U0004

== ENCOUNTER → 2023-03-04 | Outpatient (CLI) | payer BC ==
[~2023-03-04] MED LIST changes: +VICODIN HP 10-1 EAC1 PO
[2023-03-04 12:01] LABS: BASOPHILS ABSOLUTE AUTO 0.04 K/mm3 (0.00-0.23); BASOPHILS PERCENT AUTO 1 % (0-2); EOSINOPHILS ABSOLUTE AUTO 0.21 K/mm3 (0.00-0.68); EOSINOPHILS PERCENT AUTO 3 % (0-6); Hematocrit 41.4 % (37.0-53.0); IMMATURE GRAN ABSOLUTE AUTO 0.03 K/mm3 (0.00-0.10); IMMATURE GRAN PERCENT AUTO 0 % (0-1); LYMPHOCYTES ABSOLUTE AUTO 1.78 K/mm3 (0.84-5.20); LYMPHOCYTES PERCENT AUTO 25 % (21-46); MONOCYTES ABSOLUTE AUTO 0.41 K/mm3 (0.16-1.47); MONOCYTES PERCENT AUTO 6 % (4-13); Mean Corpuscular HGB 29.8 pg (26.0-34.0); Mean Corpuscular HGB Conc 33.8 g/dL (31.5-36.5); Mean Corpuscular Volume 88 fL (80-100); Mean Platelet Volume 11.8 fL (9.1-12.4); NEUTROPHILS ABSOLUTE AUTO 4.56 K/mm3 (1.96-9.15); NEUTROPHILS PERCENT AUTO 65 % (41-73); Platelet Count 179 K/mm3 (150-400); RDW Coefficient Variation 13.2 % (11.7-14.2); RDW Standard Deviation 42.7 fL (35.1-46.3); White Blood Cell Count 7.03 K/mm3 (4.00-11.30)
[2023-03-04 16:42] LABS: Albumin, Blood 4.1 g/dL (3.4-5.0); Albumin/Globulin Ratio 1.4 (0.8-1.8); Bilirubin, Total 1.1 mg/dL (0.1-1.0); Calcium, Blood 9.2 mg/dL (8.5-10.1); Creatinine, Blood 0.74 mg/dL (0.60-1.20); Globulin, Blood 2.9 g/dL (2.2-4.0); Potassium, Blood 4.2 mmol/L (3.5-5.5); Uric Acid, Blood 5.2 mg/dL (3.5-7.2)
== END | disposition home or self-care (01) ==
LOC: LAB SHORT 10:44
PROVIDERS: Internal Medicine Rheumatology
DX: M10.032 Idiopathic gout, left wrist (principal); G89.29 Other chronic pain
CPT/HCPCS: 80053; 84550; 85025; 85651

== ENCOUNTER → 2024-04-26 | Outpatient (CLI) | payer BC | END | disposition home or self-care (01) | LOC: LAB SHORT 13:35 → LAB 13:35 | DX: M10.062 Idiopathic gout, left knee (principal) | CPT/HCPCS: 84550 ==

== ENCOUNTER → 2024-10-25 | Outpatient (CLI) | payer BC | END | disposition home or self-care (01) | LOC: LAB SHORT 16:56 → LAB 16:56 | DX: M10.062 Idiopathic gout, left knee (principal) | CPT/HCPCS: 84550 ==